=== PATIENT | male | born 2005 | race African-American/Black ===

== ENCOUNTER 2023-10-19 11:12 | Emergency (ER) | payer MEDICAID ==
[~2023-10-19] VITALS: Ht 177.8 cm; Wt 71.0 kg
[2023-10-19 11:37] VITALS: BP 105/67; O2SAT 99
[2023-10-19] MEDS ORDERED: IBUP-2029 PO (13:30)
[2023-10-19 14:00] VITALS: PULSE 56; RESP 12; TEMP 98.3
== END 2023-10-19 14:10 | disposition home or self-care (01) ==
LOC: ER 11:27
DX: S62.322A Displaced fracture of shaft of third metacarpal bone, right hand, initial encounter for closed fracture (principal); V89.2XXA Person injured in unspecified motor-vehicle accident, traffic, initial encounter; Y93.89 Activity, other specified; Y92.89 Other specified places as the place of occurrence of the external cause; Y99.8 Other external cause status
CPT/HCPCS: 29125; 73130; 99283